=== PATIENT | female | born 1995 | race American Indian/Alaskan Native ===

== ENCOUNTER 2019-12-27 13:28 | Outpatient (CLI) | payer OTHER ==
--- NOTE | 2019-12-27 14:05 | Emergency Department Report ---
{null, Chief Complaint: Vaginal Bleeding Stated Complaint: PREG Time Seen by Provider: 12/27/19 14:03 - HPI History of Present Illness: pt is a 24 y/o F p/w a cc of vag d/c and LAP with . Pt denies vag bleeding. Pt hasnt had an US yet for this - Exam Vital Signs: Vital Signs 12/27/19 13:31 Temperature 98.1 F Pulse Rate 89 Respiratory 20 Rate Blood Pressure 111/64 O2 Sat by Pulse 99 Oximetry MSE screening note: Focused history and physical exam performed. Due to findings the following was ordered: cbc, bmp, Shcg, u/a Pelvic U/S ED Disposition for MSE Condition: Stable }
[2019-12-27 14:36] LABS: Basophils % (Auto) 0.2 % (0.0-1.8); Eosinophils % (Auto) 0.7 % (0.0-4.3); Hemoglobin 10.7 gm/dl (10.1-14.3); Lymphocytes # (Auto) 1.8 K/mm3 (1.2-5.4); Lymphocytes % (Auto) 25.8 % (13.4-35.0); Mean Corpuscular HGB Conc 34 % (30-34); Mean Corpuscular Volume 89 fl (79-97); Monocytes # (Auto) 0.5 K/mm3 (0.0-0.8); Monocytes % (Auto) 7.6 % (0.0-7.3); Platelet Count 327 K/mm3 (140-440); Red Blood Count 3.58 M/mm3 (3.65-5.03); Red Cell Distribution Width 14.5 % (13.2-15.2)
[2019-12-27 14:55] LABS: BUN/Creatinine Ratio 12; Blood Urea Nitrogen 6 mg/dL (7-17); Calcium 8.7 mg/dL (8.4-10.2); Hemolysis Index 2
[2019-12-27 16:04] LABS: Bilirubin,Urine NEG (Negative); Blood,Urine NEG (Negative); Color,Urine Yellow (Yellow); Mucus,Urine FEW /HPF; Protein,Urine <15 mg/dL mg/dL (Negative)
--- NOTE | 2019-12-27 17:05 | Ultrasound Report ---
{null, ULTRASOUND OBSTETRIC INDICATION / CLINICAL INFORMATION: , LAP. Clinical Gestational Age (GA): 21 weeks 6 days TECHNIQUE: Transabdominal. COMPARISON: None available. FINDINGS: There is a single intrauterine . Biparietal Diameter = 5.14 cm = 21 weeks, 4 day(s). Head Circumference = 19.65 cm = 21 weeks, 6 day(s). Abdominal Circumference = 17.14 cm = 22 weeks, 1 day(s). Femur Length = 3.88 cm = 22 weeks, 3 day(s). Average Ultrasound Age (AUA) = 22 weeks, 0 day(s). No congenital anomalies identified. The stomach, kidneys, bladder, diaphragm, heart, three-vess el cord, and cord insertion site all appear grossly unremarkable. spine and intracranial struct ures appear grossly unremarkable. Heart Rate: 151 beats per minute. Estimated Weight in grams (if calculated): 4 83 g Estimated Weight Growth Percentile (if calculated): 62% Position: . Cervix: closed. Length in cm (if measured): 4.4 cm Placenta: posterior and free of the os. Amniotic Fluid Volume: normal Amniotic Fluid Index (ROB) in cm (if calculated): Not measured. Maternal Adnexa: No significant abnormality. IMPRESSION: 1. Single, living intrauterine with estimated sonographic age of 22 weeks, 0 day(s). 2. No significant sonographic abnormality. 3. The fetus is in a variable presentation. Signer Name: Gabby Chao MD Signed: 12/27/2019 5:01 PM Workstation Name: [id number] }
[2019-12-27 19:36] VITALS: BP 115/72
== END 2019-12-27 20:09 | disposition home or self-care (01) ==
LOC: ED 13:28 → TRG 13:28 → EDSTATUS 18:45 → TRG 18:57
PROVIDERS: ATTEND Obstetrics & Gynecology
DX: O47.02 False labor before 37 completed weeks of gestation, second trimester (principal); Z3A.21 21 weeks gestation of pregnancy
CPT/HCPCS: 36415; 76805; 80048; 81001; 84702; 85025

== ENCOUNTER 2020-03-15 14:36 | Outpatient (CLI) | payer MEDICAID ==
[2020-03-15 19:18] VITALS: BP 109/76
== END 2020-03-15 17:45 | disposition home or self-care (01) ==
LOC: LAB 14:36 → APU 17:15 → LAB 17:45
PROVIDERS: ATTEND Nurse Practitioner Women's Health
DX: O26.893 Other specified pregnancy related conditions, third trimester (principal); Z3A.33 33 weeks gestation of pregnancy; Z67.41 Type O blood, Rh negative
CPT/HCPCS: 86850; 86900; 86901; 96372; J2790

== ENCOUNTER 2020-03-23 06:25 | Inpatient (IN) | payer MEDICAID ==
[2020-03-23] MEDS ORDERED: BETAMET ACET/BETAMET NA PH 6 MG/ML INJ 5 ML MDV IM SCH ×2 (10:00)
--- NOTE | 2020-03-23 10:14 | Ultrasound Report ---
LIMITED OB ULTRASOUND INDICATION: , vaginal bleeding FINDINGS: There is a single intrauterine in cephalic presentation. Amniotic fluid index is 8.6 cm which is within normal limits. Placenta is located in the fundus to the left of midline. The p lacenta is grade I. There is no evidence of abruption heart rate is 157 bpm. The cervix measures 3 cm in length. There is funneling at the internal cervical os measuring approxim ately 2.2 cm. IMPRESSION: Funneling is noted at the internal cervical os. Amniotic fluid index is within normal limits. There is no sonographic evidence of abruption. Placenta is located in the fundus. BIOPHYSICAL PROFILE INDICATION: Vaginal bleeding COMPARISON: None FINDINGS: breathing movement: 2/2 movement: 2/2 posture and tone: 2/2 Qualitative amniotic fluid volume: 2/2 IMPRESSION: Total score for biophysical profile is 8/8 heart rate is 158 bpm Signer Name: Epifanio Pop MD Signed: 03/23/2020 10:09 AM Workstation Name: [id number]
[2020-03-23] MEDS: LACTATED RINGERS 1,000 ML IV SCH ×4 (11:28→15:41)
[2020-03-23 11:30] LABS: Hematocrit 33.5 % (30.3-42.9); Hemoglobin 11.1 gm/dl (10.1-14.3); Mean Corpuscular HGB Conc 33 % (30-34); Mean Corpuscular Volume 89 fl (79-97); Platelet Count 325 K/mm3 (140-440); Red Blood Count 3.76 M/mm3 (3.65-5.03); Red Cell Distribution Width 14.4 % (13.2-15.2)
[2020-03-23] MEDS ORDERED: AMPICILLIN/NS 2 GM/100 ML 2 GM/100 ML BAG IV ONE ×2 (12:47→12:58)
[2020-03-23 12:48] LABS: Bilirubin,Urine NEG (Negative); Blood,Urine LG (Negative); Color,Urine Yellow (Yellow); Mucus,Urine 2+ /HPF; Protein,Urine <15 mg/dL mg/dL (Negative)
[2020-03-23 12:51] LABS: RBC,Urine > 182.0 /HPF (0.0-6.0)
[2020-03-23] MEDS ORDERED: BUTORPHANOL 2 MG/1 ML INJ IV PRN (13:00)
[2020-03-23] MEDS ORDERED: ePHEDrine SULFATE 50 MG/1 ML INJ ONE (15:06)
[2020-03-23] MEDS ORDERED: OXYTOCIN 20 UNIT/1000ML DRIP 20,000 MILLIUNITS/1,000 ML BAG IV ONE (15:07)
--- NOTE | 2020-03-23 15:09 | History and Physical Report ---
History of Present Illness Date of examination: 03/23/20 History of present illness: PT is a 24 yo at 34.2 weeks presented this am with contractions and VB. There was a question of ROM but no evidence of ROM during hours of observation. And her VB had decrease and U/S showed no evidence of abruption. Ctxs have increased since being here though and are now very painful and every 2 minutes. Uncomplicated preg except for anemia. Pt is RH neg but got Rhogam. Pt got 1 dose of betamethasone this am. BPP 06/18 this am. Pt with h/o 3 deliveries. PT also with h/o x 2, then a LTCS x 1 for breech, and then a x 1. Pt wants to again. Past History Past Medical History: other (anemia) Past Surgical History: section (x 1) - Obstetrical History : 5 Medications and Allergies Allergies Allergy/AdvReac Type Severity Reaction Status Date / Time No Known Allergies Allergy Unverified 12/27/19 13:31 Active Meds: Active Medications Betamethasone Acet/Betameth SodPhos (Celestone Soluspan) 12 mg IM Q24HR VAL Stop: 03/24/20 11:00 Last Admin: 03/23/20 09:30 Dose: 12 mg Documented by: Butorphanol Tartrate (Stadol) 2 mg IV Q2H PRN PRN Reason: Labor Pain Last Admin: 03/23/20 13:19 Dose: 2 mg Documented by: Lactated Ringer's (Lactated Ringers) 1,000 mls @ 125 mls/hr IV DIRECT VAL Last Admin: 03/23/20 13:34 Dose: 1,200 mls/hr Documented by: Ampicillin Sodium (Ampicillin/Ns 1 Gm/50 Ml) 1 gm in 50 mls @ 100 mls/hr IV Q4HR ONE; Protocol Stop: 03/23/20 16:59 Ampicillin Sodium (Ampicillin/Ns 1 Gm/50 Ml) 1 gm in 50 mls @ 100 mls/hr IV Q4H VAL; Protocol Review of Systems All systems: negative (except for HPI) - Vital Signs Vital signs: Vital Signs Temp Pulse Resp BP Pulse Ox 98.3 F 97 H 16 98/57 98 03/23/20 06:34 03/23/20 06:34 03/23/20 06:34 03/23/20 06:34 03/23/20 06:34 Temp Pulse Resp BP Pulse Ox 97.9 F 89 15 123/60 93 03/23/20 10:51 03/23/20 15:02 03/23/20 10:51 03/23/20 13:35 03/23/20 15:02 - Obstetrical FHR: category 1 FHR comments: 120s, good LTV Cervical Dilatation: 7.5 (7-8 cm per RN) Uterine Contraction Frequency (min): q 2 min Uterine Contraction Pattern: Regular Uterine Contraction Intensity: Strong/Firm Results Result Diagrams: 03/23/20 10:30 Abnormal lab results 03/23/20 Range/Units 12:25 Urine WBC (Auto) 7.0 H (0.0-6.0) /HPF All other labs normal. Assessment and Plan - Patient Problems (1) labor Current Visit: Yes Status: Acute Plan to address problem: Pt is in active labor. PT got a Betamethasone this am and is on Abx. Awaiting epidural. Expectant care. (2) (vaginal after ) Current Visit: Yes Status: Acute Plan to address problem: Pt agrees to . Pt already counseled on potential risks/benefits to and understands the risks.
[2020-03-23] MEDS ORDERED: NALOXONE 2 MG/2 ML INJ IV PRN (15:15)
[2020-03-23] MEDS ORDERED: ePHEDrine SULFATE 50 MG/1 ML INJ IV PRN (15:15)
[2020-03-23] MEDS ORDERED: LIDOCAINE MPF (2%) 20 MG/1 ML VIAL 5 ML ONE ×2 (15:45→17:00)
--- NOTE | 2020-03-23 15:52 | Anesthesia Consultation ---
Anesthesia Consult and Med Hx Date of service: 03/23/20 - Airway Anesthetic Teeth Evaluation: Good ROM Head & Neck: Adequate Mental/Hyoid Distance: Adequate Mallampati Class: Class II Intubation Access Assessment: Probably Good - Pulmonary Exam CTA: Yes - Cardiac Exam Cardiac Exam: RRR - Pre-Operative Health Status ASA Pre-Surgery Classification: ASA2 Proposed Anesthetic Plan: Epidural, Spinal - Pulmonary Hx Respiratory Symptoms: No - Cardiovascular System Hx Hypertension: No Hx Heart Attack/AMI: No - Central Nervous System Hx Neuromuscular Disorder: No Hx Seizures: No CVA: No Hx Psychiatric Problems: No - Endocrine Hx Renal Disease: No Hx Liver Disease: No Hx Insulin Dependent Diabetes: No Hx Non-Insulin Dependent Diabetes: No Hx Thyroid Disease: No - Hematic Hx Anemia: Yes Hx Sickle Cell Disease: No - Other Systems Hx Obesity: No - Additional Comments Anesthesia Medical History Comments: No hx anesthetic complications. No issues with prior epidural. No hx bleeding disorders or use of blood thinners.
[2020-03-23] MEDS ORDERED: fentaNYL-BUPIV 2 MCG/ML-0.125% 200 MCG/100 ML BAG EPIDURAL SCH (16:00)
[2020-03-23] MEDS ORDERED: AMPICILLIN/NS 1 GM/50 ML 1 GM/50 ML BAG IV ONE (16:30)
[2020-03-23] MEDS ORDERED: OXYTOCIN 10 UNIT/1 ML INJ ONE (17:17)
--- NOTE | 2020-03-23 17:22 | Procedure Note ---
OB Delivery Note - Delivery Date of Delivery: 03/23/20 Surgeon: SAKINA TRAYLOR Estimated blood loss: 200cc - Vaginal Delivery position: OA Intrapartum events: labor-<37 weeks Delivery induction: none Delivery monitor: external FHT Route of delivery: Delivery placenta: spontaneous Delivery cord: 3 umbilical vessels Episiotomy: none Delivery laceration: none Anesthesia: epidural Delivery comments: Uncomplicated . Baby bulb suctioned at the perineum and again after delivery. Delayed cord clamping and cut was done. Baby handed over to carlos. Placenta delivered spontaneously. No lacs. Good hemostasis. Mother and baby stable. - Infant A at 1 minute: 8 at 5 minutes: 8 Gender: Female
[2020-03-23] MEDS ORDERED: ONDANSETRON 4 MG/2 ML INJ IV PRN (17:23)
[2020-03-23] MEDS ORDERED: PROMETHAZINE 25 MG RECT SUPP PR PRN (17:23)
[2020-03-23] MEDS ORDERED: diphenhydrAMINE 25 MG CAP PO PRN (17:23)
[2020-03-23] MEDS ORDERED: ACETAMINOPHEN 325 MG TAB PO PRN (17:23)
[2020-03-23] MEDS ORDERED: PROMETHAZINE 25 MG TAB PO PRN (17:23)
[2020-03-23] MEDS ORDERED: LANOLIN/ZINC/DIMETHICONE (LANSINOH) 7 GM TP PRN ×2 (17:23)
[2020-03-23] MEDS ORDERED: BENZOCAINE/MENTHOL 20/0.5% TOP SPRAY 56 GM TP PRN (17:23)
[2020-03-23] MEDS ORDERED: MAGNESIUM HYDROXIDE (MOM) ORAL LIQD UDC PO PRN (17:23)
[2020-03-23] MEDS ORDERED: WITCH HAZEL/ GLYCERIN PAD TP PRN (17:23)
[2020-03-23] MEDS ORDERED: BUPIVACAINE/PF (0.25%) 2.5 MG/ML 10 ML VIAL INFILTRATI ONE (17:35)
[2020-03-23] MEDS ORDERED: OXYTOCIN 20 UNIT/1000ML DRIP 20 UNITS/1,000 ML BAG IV SCH (18:00)
[2020-03-23] MEDS: IBUPROFEN 600 MG TAB PO SCH (18:55)
[2020-03-23] MEDS ORDERED: AMPICILLIN/NS 1 GM/50 ML 1 GM/50 ML BAG IV SCH (20:00)
--- NOTE | 2020-03-23 20:37 | Post Anesthesia Evaluation ---
- Post Anesthesia Evaluation Patient Participated: Yes Airway Patent: Yes Stable Respiratory Function: Yes Nausea/Vomiting: No Temp > 96.8F: Yes Pain Manageable: Yes Adequeate Hydration: Yes Anesthesia Complications: No Block Receding Appropriately: Yes Patient on Ventilator: No
[2020-03-23] MEDS: oxyCODONE /ACETAMINOPHEN 5-325MG TAB PO PRN (22:13)
[2020-03-24] MEDS: IBUPROFEN 600 MG TAB PO SCH ×2 (00:17→22:34)
[2020-03-24] MEDS: oxyCODONE /ACETAMINOPHEN 5-325MG TAB PO PRN ×2 (03:24→14:53)
[2020-03-24 05:54] LABS: Hematocrit 27.9 % (30.3-42.9); Hemoglobin 9.5 gm/dl (10.1-14.3)
--- NOTE | 2020-03-24 11:10 | Progress Note ---
Assessment and Plan - Patient Problems (1) (vaginal after ) Current Visit: Yes Status: Acute Plan to address problem: PPD 1 - stable Continue routine orders Discharge to home 03/25/20 Follow-up at [facility] as needed or in 6 weeks for exam (2) delivery Current Visit: Yes Status: Acute (3) Anemia due to blood loss, acute Current Visit: Yes Status: Acute Plan to address problem: Asymptomatic Iron therapy initiated (4) Rh negative status during in third trimester Current Visit: Yes Status: Acute Plan to address problem: s/p Rhogam (5) Encounter for other general counseling and advice on contraception Current Visit: Yes Status: Acute Plan to address problem: Contraceptive counseling provided. Patient insists on BTL. Consent signed today Subjective - Subjective Date of service: 03/24/20 Principal diagnosis: PPD #1; Interval history: see [facility] - H&P and OB Delivery Procedure Note Patient reports: appetite normal, voiding normally, pain well controlled, ambulating normally, no dizzy ambulation [place]: in NICU Objective - Vital Signs Latest vital signs: Vital Signs Temp Pulse Resp BP Pulse Ox 03/24/20 07:42 97.4 F L 75 18 105/59 98 03/24/20 05:33 97.7 F 74 18 104/63 97 03/24/20 03:24 16 03/23/20 23:31 98.3 F 75 17 111/65 97 03/23/20 22:13 18 03/23/20 19:46 98.1 F 90 18 119/76 99 03/23/20 18:56 104 H 99 03/23/20 18:51 86 99 03/23/20 18:46 78 100 03/23/20 18:45 98 F 89 03/23/20 18:41 87 100 03/23/20 18:36 95 H 100 03/23/20 18:31 84 100 03/23/20 18:28 83 123/76 03/23/20 18:26 88 100 03/23/20 18:21 87 99 03/23/20 18:16 94 H 100 03/23/20 18:11 92 H 100 03/23/20 18:06 89 100 03/23/20 18:01 96 H 100 03/23/20 17:58 93 H 118/70 03/23/20 17:56 99 H 100 05 17:51 93 H 100 05/20 17:42 98 H 99 05/ 17:37 93 H 99 05 17:32 91 H 99 05 17:28 95 H 117/78 05 17:27 104 H 98 05/ 17:22 94 H 99 05 17:17 98 H 99 05/ 17:12 93 H 100 05 17:07 108 H 100 05 17:02 110 H 100 05 16:59 101 H 122/67 05 16:57 107 H 100 05 16:53 110 H 0 L 03/23/20 16:52 98 H 100 05 16:47 98 H 100 05 16:42 92 H 100 05 16:37 107 H 100 05 16:36 103 H 89 05 16:32 90 100 05 16:29 98 H 134/65 05/ 16:27 94 H 99 05 16:22 93 H 100 05 16:17 88 99 05 16:12 90 100 05 16:07 96 H 100 05 16:02 101 H 98 05 15:57 90 121/65 100 05/ 15:55 91 H 89 05 15:54 90 119/65 05/ 15:52 89 100 05 15:51 91 H 118/62 05/20 15:49 96 H 92 0520 15:48 93 H 116/61 05/20 15:47 95 H 97 05/20 15:46 96 H 118/57 05/20 15:43 94 H 110/58 05/20 15:42 106 H 100 05/20 15:39 90 124/64 05/20 15:37 98 H 97 05/20 15:36 103 H 124/72 05/20 15:35 105 H 94 05/20 15:34 94 H 116/62 05/13/20 15:32 117 H 99 05/13/20 15:27 110 H 96 05/13/20 15:22 106 H 99 05/13/20 15:17 101 H 97 05/13/20 15:13 71 84 05/13/20 15:12 92 H 95 05/13/20 15:07 105 H 98 05/13/20 15:02 89 93 05/13/20 14:58 96 H 92 05//20 14:57 92 H 99 05/13/20 14:52 98 H 98 05/13/20 14:47 106 H 99 05/13/20 14:42 99 H 98 05/13/20 14:39 96 H 91 05//20 14:37 91 H 98 05//20 14:32 100 H 98 05/13/20 14:29 98 H 92 05//20 14:27 97 H 99 05/13/20 14:22 100 H 98 05/13/20 14:17 102 H 95 05//20 14:12 105 H 100 05//20 14:08 100 H 94 05//20 14:06 97 H 99 05//20 14:01 105 H 98 05/13/20 13:56 112 H 99 05/13/20 13:54 93 H 92 05/20 13:51 99 H 98 05/13/20 13:48 97 H 90 05//20 13:46 106 H 97 05/13/20 13:43 89 93 05/13/20 13:41 104 H 99 05/13/20 13:38 86 92 05/13/20 13:36 106 H 98 05/13/20 13:35 93 H 123/60 05/13/20 13:31 102 H 97 05/13/20 13:26 95 H 85 05/13/20 13:24 94 H 94 05/13/20 13:21 81 95 05/13/20 13:18 97 H 84 05/13/20 13:16 101 H 99 05/13/20 13:11 86 100 05/13/20 13:06 88 100 05/13/20 13:01 83 99 05/13/20 12:56 86 100 05/13/20 12:51 98 H 100 05/13/20 12:46 77 99 05/13/20 12:41 83 99 03/23/20 12:36 84 100 03/23/20 12:31 80 95 03/23/20 12:26 86 99 03/23/20 12:23 74 86 03/23/20 12:21 88 99 03/23/20 12:16 98 H 100 03/23/20 12:11 86 98 03/23/20 12:07 83 116/63 03/23/20 12:06 87 100 Intake and Output 03/23/20 03/24/20 03/24/20 23:59 07:59 15:59 Intake Total 1000 240 Balance 1000 240 Intake: IV 700 Lactated Ringers 1,000 ml 700 @ 125 mls/hr IV DIRECT VAL Rx#:[id number] Oral 240 Intake, Free Water 300 Other: Total, Intake Amount 240 # Voids Void 1 1 # Bowel Movements 0 Estimated Blood Loss 200 - Exam Cardiovascular: Present: Regular rate Lungs: Present: Clear to auscultation, Normal air movement Abdomen: Present: normal appearance, soft Vulva: both: normal Uterus: Present: normal, firm, fundal height below umbilicus Extremities: Present: normal Comments: scant lochia - Labs Labs: Abnormal lab results 03/23/20 03/24/20 Range/Units 12:25 05:08 Hgb 9.5 L (10.1-14.3) gm/dl Hct 27.9 L (30.3-42.9) % Urine WBC (Auto) 7.0 H (0.0-6.0) /HPF
--- NOTE | 2020-03-24 11:15 | Discharge Summary ---
Providers - Providers Date of Admission: 03/23/20 06:27 Date of discharge: 03/25/20 Attending physician: MILTON OWENS MD Primary care physician: MILTON OWENS MD Hospitalization Reason for admission: active labor, labor Delivery: Episiotomy: none Laceration: none Other procedures: none complications: none Discharge diagnosis: delivery baby: female Hospital course: Uncomplicated Condition at discharge: Stable Disposition: [id number] TO HOME OR SELFCARE - Discharge Diagnoses (1) (vaginal after ) Status: Acute (2) delivery Status: Acute (3) Anemia due to blood loss, acute Status: Acute Comment: Asymptomatic Continue iron therapy Eat iron-rich foods (4) Rh negative status during in third trimester Status: Acute (5) Encounter for other general counseling and advice on contraception Status: Acute Comment: Tubal Ligation Consent signed today Plan - Discharge Medications Prescriptions: Ferrous Sulfate [Feosol 325 MG tab] 325 mg PO BID #60 tablet - Provider Discharge Summary Activity: routine, no sex for 6 weeks, no heavy lifting 4 weeks, no strenuous exercise Diet: routine Instructions: routine Additional instructions: [] Smoking cessation referral if applicable(refer to patient education folder for contact #) [] Refer to [facility] Booklet Call your doctor immediately for: * Fever > 100.5 * Heavy vaginal bleeding ( >1 pad per hour) * Severe persistent headache * Shortness of breath * Reddened, hot, painful area to leg or breast * Drainage or odor from incision. * Keep incision clean and dry at all times and follow doctor's instructions regarding bathing/showering - Follow up plan Follow up: MILTON OWENS MD [Primary Care Provider] - 6 Weeks (Follow-up at [facility] as needed or in 6 weeks for exam)
[2020-03-24] MEDS: FERROUS SULFATE 325 MG TAB PO SCH ×2 (14:53→22:34)
[2020-03-25] MEDS: oxyCODONE /ACETAMINOPHEN 5-325MG TAB PO PRN ×2 (00:06→11:16)
[2020-03-25] MEDS: FERROUS SULFATE 325 MG TAB PO SCH (09:21)
[2020-03-25 09:58] VITALS: BP 110/62
== END 2020-03-25 11:30 | disposition home or self-care (01) | DRG 775 ==
LOC: TRG 06:25 → OBSVTOIN 06:27 → LD 06:27 → APU 06:31 → TRG 15:55 → OB 20:35
PROVIDERS: ADMIT Obstetrics & Gynecology; ATTEND Obstetrics & Gynecology
PROC: 10E0XZZ Delivery of Products of Conception, External Approach (ICD-10-PCS; principal; 2020-03-23)
PROC: 3E0R3BZ Introduction of Anesthetic Agent into Spinal Canal, Percutaneous Approach (ICD-10-PCS; 2020-03-23)
PROC: 00HU33Z Insertion of Infusion Device into Spinal Canal, Percutaneous Approach (ICD-10-PCS; 2020-03-23)
PROC: 3E0234Z Introduction of Serum, Toxoid and Vaccine into Muscle, Percutaneous Approach (ICD-10-PCS; 2020-03-23)
DX: O60.14X0 Preterm labor third trimester with preterm delivery third trimester, not applicable or unspecified (principal); Z3A.34 34 weeks gestation of pregnancy; Z37.0 Single live birth; O26.893 Other specified pregnancy related conditions, third trimester; Z67.91 Unspecified blood type, Rh negative; O90.81 Anemia of the puerperium; D62 Acute posthemorrhagic anemia
CPT/HCPCS: 36415; 59025; 76815; 76819; 81001; 85014; 85018; 85027; 85461; 86592; 86850; 86870; 86900; 86901; 96372; G0378; J0290; J0595; J2590; J2790; J7120

== ENCOUNTER 2020-07-29 09:08 | Day surgery (SDC) | payer MEDICAID ==
--- NOTE | 2020-07-19 11:31 | History and Physical Report ---
History of Present Illness Date of examination: 07/29/20 History of present illness: 24 yo is for Lap BTL on 07/29/20. BTL papers signed 03/25. PT is on Depo. H/o LTCS x 1. Past History Past Medical History: no pertinent history Past Surgical History: section (x 1) [facility] History: gonorrhea Social history: no significant social history - Obstetrical History : 5 Medications and Allergies Allergies Allergy/AdvReac Type Severity Reaction Status Date / Time No Known Allergies Allergy Verified 07/29/20 09:59 Home Medications Medication Instructions Recorded Confirmed Last Taken Type No Known Home Medications [No 07/22/20 07/22/20 Unknown History Reported Home Medications] Active Meds: see EMR charting Review of Systems All systems: negative (except HPI) - Vital Signs Vital signs: see EMR charting - Physical Exam Cardiovascular: Regular rate, No murmurs Lungs: Positive: Clear to auscultation, Normal air movement Abdomen: Positive: normal appearance, soft. Negative: tenderness Results All other labs normal. Assessment and Plan - Patient Problems (1) Sterilization Current Visit: No Status: Acute Plan to address problem: PT is for Lap BTL on 07/29. Patient fully consented for the surgery. Risks, benefits, and alternatives were all discussed with the patient including risk of bleeding, infection, and potential for injury. Patient understands and accepts these risks. Patient agrees to proceed with surgery. All questions were answered. H&P is up-to-date on 07/29/20.
[~2020-07-29 09:08] MED LIST: CELECOXIB 200 MG CAP PO NR; GABAPENTIN 300 MG CAP PO NR; LACTATED RINGERS 1,000 ML IV SCH; MAGNESIUM OXIDE 400 MG TAB PO SCH; MIDAZOLAM 2 MG/2 ML INJ IV NR
--- NOTE | 2020-07-29 10:44 | Anesthesia Consultation ---
Anesthesia Consult and Med Hx - Airway Anesthetic Teeth Evaluation: Good ROM Head & Neck: Adequate Mental/Hyoid Distance: Adequate Mallampati Class: Class II Intubation Access Assessment: Probably Good - Pulmonary Exam CTA: Yes - Cardiac Exam Cardiac Exam: RRR - Pre-Operative Health Status ASA Pre-Surgery Classification: ASA1 Proposed Anesthetic Plan: General - Pulmonary Hx Smoking: No Hx Respiratory Symptoms: No - Cardiovascular System Hx Hypertension: No Hx Heart Attack/AMI: No - Central Nervous System CVA: No - Endocrine Hx Renal Disease: No Hx Liver Disease: No Hx Insulin Dependent Diabetes: No Hx Non-Insulin Dependent Diabetes: No Hx Thyroid Disease: No - Other Systems Hx Obesity: No
--- NOTE | 2020-07-29 10:44 | Anesthesia Day of Surgery ---
Anesthesia Day of Surgery - Day of Surgery Patient Examined: Yes Patient H&P Reviewed: Yes Patient is NPO: Yes
[2020-07-29] MEDS ORDERED: LIDOCAINE MPF (2%) 20 MG/1 ML VIAL 5 ML ONE (11:24)
[2020-07-29] MEDS ORDERED: HYDROmorphone 1 MG/1 ML INJ ONE (11:24)
[2020-07-29] MEDS ORDERED: propofoL 200 MG/20 ML VIAL IV ONE (11:24)
[2020-07-29] MEDS ORDERED: ROCURONIUM 50 MG/5 ML INJ IV ONE (11:25)
[2020-07-29] MEDS ORDERED: BUPIVACAINE/PF (0.5%) 5 MG/1 ML 30 ML VIAL INFILTRATI ONE (11:41)
[2020-07-29] MEDS ORDERED: ONDANSETRON 4 MG/2 ML INJ ONE (12:26)
[2020-07-29] MEDS ORDERED: dexAMETHasone 20 MG/5 ML VIAL ONE (12:26)
[2020-07-29] MEDS ORDERED: NEOSTIGMINE 10MG/10 ML INJ MDV ONE (12:26)
[2020-07-29] MEDS ORDERED: KETOROLAC 30 MG/1 ML INJ ONE (12:26)
[2020-07-29] MEDS ORDERED: GLYCOPYRROLATE 0.4 MG/2 ML INJ ONE (12:27)
--- NOTE | 2020-07-29 12:44 | Post Operative Note ---
Date of procedure: 07/29/20 Pre-op diagnosis: Sterilization Post-op diagnosis: same Findings: Normal uterus, tubes, and ovaries were within normal limits except for the uterus in the midline anteriorly had a thick band of significant scarring from the anterior uterine wall to the anterior peritoneal wall. Patient with a history of a prior . The rest of the abdominal/pelvic survey was grossly within normal limits. Procedure: Indication: 24-year-old -3-0-5 is here for sterilization. Procedure: Laparoscopic bilateral tubal ligation. Patient taken the operating room and prepped and draped in usual fashion. Attention was first turned vaginally where single-tooth tenaculum was applied to the anterior lip of the cervix and an acorn uterine manipulator was placed. Attention was now turned abdominally where a 5 mm incision was made in the umbilicus. Veres needle then placed in the abdominal cavity. The abdomen was appropriately insufflated with CO2 gas. Veres needle removed and the 5 mm trocar was placed in abdominal cavity. Placement confirmed with the camera. Findings noted above. In light of the significant anterior uterine wall scarring in the low midline area of the pelvis, the 5 mm umbilical trocar site was converted to an 8 mm trocar site and the 8 mm trocar was placed in that umbilical trocar spot without difficulty. Then a 5 mm trocar site was made in the left upper quadrant 2 fingerbreadths inferior to the costal margin in the midclavicular line. This was placed under direct visualization without difficulty. The camera was then placed in this port. This was all done to avoid potential injury to the uterus and/or bladder by putting a suprapubic trocar site in. Attention turned to the tubal ligation where a Filshie clip was applied to each tube. Each clip encompassed the full width of the tube on each side and good hemostasis was noted afterwards on both sides. At this point the abdomen was fully desufflated. Trochars were removed. Trocar sites were closed with 4-0 Vicryl in a subcuticular fashion followed by Marcaine. The acorn uterine manipulator and single-tooth tenaculum were removed. Procedure concluded at this point. Patient tolerated the procedure well. All instrument lap counts were correct. Patient taken to the recovery room in stable condition. Anesthesia: GETA Surgeon: SAKINA TRAYLOR Estimated blood loss: minimal Pathology: none Condition: stable Disposition: PACU
--- NOTE | 2020-07-29 12:46 | Short Stay Summary ---
Short Stay Documentation Date of service: 07/29/20 Narrative H&P: Patient presented on 07/29/2020 for her scheduled laparoscopic bilateral tubal ligation which was done without difficulty. Please see op report for details. Patient sent home in stable condition with follow-up advised 2 weeks postop - History H&P: obtained from office Social history: no significant social history - Allergies and Medications Current Medications: Allergies No Known Allergies Allergy (Verified 07/29/20 09:59) Home Medications Medication Instructions Recorded Confirmed Last Taken Type Ibuprofen [Motrin 600 MG tab] 600 mg PO Q6H PRN #30 tablet 07/29/20 Unknown Rx oxyCODONE /ACETAMINOPHEN [Percocet 1 tab PO Q4HR PRN #30 tab 07/29/20 Unknown Rx 5/325] Active Medications Celecoxib (Celebrex) 200 mg PO PREOP NR Stop: 07/29/20 23:00 Last Admin: 07/29/20 10:15 Dose: 200 mg Documented by: Gabapentin (Gabapentin) 300 mg PO PREOP NR Stop: 07/29/20 23:00 Last Admin: 07/29/20 10:15 Dose: 300 mg Documented by: Hydromorphone HCl (Dilaudid) 0.5 mg IV Q10MIN PRN PRN Reason: Pain , Severe (7-10) Stop: 07/29/20 23:59 Lactated Ringer's (Lactated Ringers) 1,000 mls @ 100 mls/hr IV DIRECT VAL Stop: 07/29/20 23:59 Last Admin: 07/29/20 10:25 Dose: 100 mls/hr Documented by: Magnesium Oxide (Mag-Ox) 400 mg PO PREOP VAL Stop: 07/29/20 23:00 Last Admin: 07/29/20 10:15 Dose: 400 mg Documented by: Midazolam HCl (Versed) 2 mg IV PREOP NR Stop: 07/29/20 23:00 Last Admin: 07/29/20 10:28 Dose: 2 mg Documented by: - Disposition Condition at discharge: Stable Disposition: [id number] TO HOME OR SELFCARE - Discharge Diagnoses (1) Sterilization Status: Acute Short Stay Discharge Plan Follow up with: SAKINA TRAYLOR MD [Staff Physician] - 14 Days Prescriptions: Ibuprofen [Motrin 600 MG tab] 600 mg PO Q6H PRN #30 tablet PRN Reason: Pain oxyCODONE /ACETAMINOPHEN [Percocet 5/325] 1 tab PO Q4HR PRN #30 tab PRN Reason: Pain , Severe (7-10)
[2020-07-29] MEDS: HYDROmorphone 1 MG/1 ML INJ IV PRN ×2 (12:58→13:10)
[2020-07-29] MEDS ORDERED: oxyCODONE /ACETAMINOPHEN 5-325MG TAB PO PRN (13:03)
[2020-07-29 14:20] VITALS: BP 112/77
== END 2020-07-29 09:09 | disposition home or self-care (01) ==
LOC: OR 09:08
PROVIDERS: ATTEND Obstetrics & Gynecology
DX: Z30.2 Encounter for sterilization (principal); Z98.891 History of uterine scar from previous surgery; Z79.899 Other long term (current) drug therapy; Z98.890 Other specified postprocedural states
CPT/HCPCS: 58671; 81025; J1100; J1170; J1885; J2250; J2405; J2704; J2710; J7120